=== PATIENT | male | born 1960 | race Caucasian/White ===

== ENCOUNTER 2019-05-04 07:06 | Emergency (ER) | payer OTHER, BC ==
[2019-05-04] MEDS ORDERED: DIPH/PERTUSS(ACELL)/TETANUS VAC/PF 0.5 ML SYR (>=10YO) IM ONE (07:35)
[2019-05-04] MEDS ORDERED: LIDOCAINE 1% INJ-PF (10 MG/ML) 30 ML SDV INJ ONE (07:39)
--- NOTE | 2019-05-04 09:04 | RADIOLOGY REPORT (SQ) ---
EXAM DESCRIPTION: FINGER LEFT COMPLETED DATE/TIME: 05/04/2019 8:53 am REASON FOR STUDY: Laceraction of left second digit COMPARISON: None. NUMBER OF VIEWS: Three views. TECHNIQUE: AP, lateral, and oblique images acquired of the left second finger. LIMITATIONS: None. FINDINGS: MINERALIZATION: Normal. BONES: No acute fracture or dislocation. No worrisome bone lesions. SOFT TISSUES: No soft tissue swelling. No foreign body. OTHER: No other significant finding. IMPRESSION: NO RADIOGRAPHIC EVIDENCE OF ACUTE INJURY. TECHNICAL DOCUMENTATION: JOB ID: [id number] [employer]- All Rights Reserved Reading location - IP/workstation name: [email or web address]
--- NOTE | 2019-05-04 10:25 | ER Document Report ---
ED Hand/Wrist Injury - General Chief Complaint: Finger Injury Stated Complaint: FINGER LACERATION Time Seen by Provider: 05/04/19 08:07 Notes: Healthy 59-year-old male with hypertension presents to the emergency department with a laceration to his left index finger sustained at work at 6:50 AM this morning. Patient works at [employer] and he was using a safety knife cutting into a piece of plastic when it slipped and he sustained a laceration from his PIP of the left index finger down just past his DIP on the anterior and lateral aspect longitudinally. Tetanus is not up-to-date. Bleeding is controlled. Patient has full range of motion. Patient is not on anticoagulation. No other complaints - Related Data Allergies/Adverse Reactions: No Known Allergies Allergy (Unverified 05/04/19 08:03) Past Medical History - Social History Smoking Status: Current Every Day Smoker Family History: None Patient has suicidal ideation: No Patient has homicidal ideation: No Renal/ Medical History: Denies: Hx Peritoneal Dialysis Review of Systems - Review of Systems Constitutional: No symptoms reported EENT: No symptoms reported Cardiovascular: No symptoms reported Respiratory: No symptoms reported Gastrointestinal: No symptoms reported Genitourinary: No symptoms reported Male Genitourinary: No symptoms reported Musculoskeletal: See HPI Skin: See HPI Hematologic/Lymphatic: No symptoms reported Neurological/Psychological: See HPI Physical Exam - Vital signs Vitals: Temp Pulse Resp BP Pulse Ox 98.4 F 62 20 144/85 H 96 05/04/19 07:17 05/04/19 07:17 05/04/19 07:17 05/04/19 07:17 05/04/19 07:17 - Notes Notes: PHYSICAL EXAMINATION: Reviewed vital signs and charting by RN GENERAL: Alert, interacts well. No acute distress. HEAD: Normocephalic, atraumatic. EYES: Pupils equal and round. Extraocular movements intact. ENT: Oral mucosa moist, tongue midline. NECK: Full range of motion. Trachea midline. EXTREMITIES: Moves all 4 extremities spontaneously. No edema, No cyanosis. PSYCH: Normal affect, normal mood. SKIN: Warm, dry, normal turgor. No rashes or lesions noted. 3-1/2 cm laceration on the anterior lateral aspect of the left index finger that is longitudinal, normal distal neurovascular exam, patient has normal range of motion to the left index finger of the DIP and PIP active and both against resistance in flexion and extension. Course - Re-evaluation Re-evalutation: 05/04/19 10:24 Overall well-appearing, primary closure performed using 5-0 Ethilon on the left index finger, patient tolerated procedure well, digital block was performed using lidocaine 1% without epinephrine, plan is to place him in a finger splint for protection, discharge instructions given and return precautions given. Patient understands and is stable for discharge. - Vital Signs Vital signs: Temp Pulse Resp BP Pulse Ox 98.4 F 62 20 144/85 H 96 05/04/19 07:17 05/04/19 07:17 05/04/19 07:17 05/04/19 07:17 05/04/19 07:17 Procedures - Immobilization Left Finger 2nd digit Pre-Proc Neuro Vasc Exam: Normal Immobilizer type: Finger splint (Static) Post-Proc Neuro Vasc Exam: Normal - Laceration/Wound Repair Left Hand 2nd digit Wound length (cm): 3.5 Wound's Depth, Shape: Superficial Laceration pre-procedure: Sterile PPE donned Anesthetic type: 1% Lidocaine Wound explored: Clean Wound Debrided: Minimal Wound Repaired With: Sutures Suture Size/Type: 5:0, Ethilon Post-procedure wound care: Sterile dressing applied, Splint applied Post-procedure NV exam normal: Yes Complications: No Discharge - Discharge Clinical Impression: Laceration of finger Qualifiers: Encounter type: initial encounter Finger: index finger Damage to nail status: without damage Foreign body presence: without foreign body Laterality: left Qualified Code(s): S61.211A - Laceration without foreign body of left index finger without damage to nail, initial encounter Condition: Good Disposition: HOME, SELF-CARE Instructions: Antibiotic Ointment Protection ([facility]), Laceration Care ([facility]), Soap Cleansing ([facility]), Tetanus Immunization Given ([facility]) Additional Instructions: Please return to your primary doctor, the ED, or an urgent care in 7 days for suture removal. Return immediately if you develop spreading redness around the wound, pus from the wound, worsening pain, or a fever of >101. Keep the area clean and dry. Wash gently with soap and water twice daily and cover with antibiotic ointment.
[2019-05-04 10:45] VITALS: BP 138/91
== END 2019-05-04 10:44 | disposition home or self-care (01) ==
LOC: ER 07:06
DX: S61.211A Laceration without foreign body of left index finger without damage to nail, initial encounter (principal); W26.0XXA Contact with knife, initial encounter; Y99.0 Civilian activity done for income or pay; F17.200 Nicotine dependence, unspecified, uncomplicated; Z23 Encounter for immunization
CPT/HCPCS: 99283; 90471; 73140; 90715; 12002; J3490